=== PATIENT | female | born 1980 | race Caucasian/White ===

== ENCOUNTER 2022-08-06 17:55 | Emergency (ER) | payer OTHER ==
[~2022-08-06] VITALS: Ht 160 cm; Wt 68.0 kg
== END 2022-08-06 23:16 | disposition home or self-care (01) ==
LOC: ER 17:55
DX: T67.01XA Heatstroke and sunstroke, initial encounter (principal); X58.XXXA Exposure to other specified factors, initial encounter; Y93.9 Activity, unspecified; Y92.9 Unspecified place or not applicable; Y99.9 Unspecified external cause status; Z91.013 Allergy to seafood